=== PATIENT | female | born 1990 | race Caucasian/White ===

== ENCOUNTER → 2017-05-01 08:34 | Outpatient (CLI) | payer OTHER, SELFPAY ==
--- NOTE | 2017-05-01 08:37 | RAD_ITS ---
STUDY: X-RAY - RIGHT SHOULDER REASON FOR EXAM: Chronic shoulder pain, history of brachial plexus injury. TECHNIQUE: 3 view(s) of the shoulder. COMPARISON: Radiographs 08/11/2012. FINDINGS: Normal glenohumeral articulation. Normal acromioclavicular joint. Normal acromion. Normal humeral head and visualized proximal humerus. The soft tissue structures are unremarkable. Normal visualized pulmonary apex. RAD/Shoulder min 2 Views IMPRESSION: Normal x-ray examination of the right shoulder. Electronically Signed: Jim Paul MD at 15:47 EST Tel , Service support ,
--- NOTE | 2017-05-01 09:17 | RAD_ITS ---
STUDY: X-RAY - RIGHT ELBOW REASON FOR EXAM: Female, 26 years old. Elbow pain. History of brachial plexus injury. TECHNIQUE: 3 view(s) of the elbow. COMPARISON: None. FINDINGS: Normal visualized humerus, radius and ulna. Normal radiocapitellar and ulnotrochlear articulations. The soft tissue structures are unremarkable. RAD/Elbow min 3 Views IMPRESSION: No significant abnormality. Electronically Signed: Gerber Carreon MD at 15:12 EST , Service support ,
== END ==
PROVIDERS: Family Provider Pediatrics; PCP Pediatrics; Visit Provider Orthopaedic Surgery
DX: M25.521 Pain in right elbow (principal); M25.511 Pain in right shoulder
CPT/HCPCS: 73030; 73080

== ENCOUNTER → 2018-02-26 21:12 | Outpatient (CLI) | payer OTHER, SELFPAY ==
[2018-02-26 15:05] VITALS: BMI 23.2
[2018-03-03 13:31] LABS: HPV Reflexed? NOT INDICATED
== END ==
PROVIDERS: Family Provider Pediatrics; PCP Pediatrics; Referring Provider Obstetrics & Gynecology; Visit Provider Obstetrics & Gynecology
DX: Z12.4 Encounter for screening for malignant neoplasm of cervix (principal)
CPT/HCPCS: 87624; 88175; G0145

== ENCOUNTER → 2018-04-16 13:56 | Outpatient (CLI) | payer OTHER, SELFPAY ==
[2018-04-16 13:49] VITALS: BMI 23.2
[2018-04-16 14:33] LABS: Absolute Lymphocyte Count 1.78 X10^3/ul (0.83-4.51); Absolute Neutrophil Count 6.2 X10^3/uL (2.0-7.7); Basophil# 0.02 X10^3/uL; Basophil% 0.2 % (0-1); Eosinophil# 0.15 X10^3/uL; Eosinophils% 1.7 % (0-5); Hematocrit 41.4 % (37-47); Hemoglobin 13.9 g/dl (12.0-15.0); Lymphocyte # 1.78 X10^3/ul (4.0); Lymphocyte % 20.3 % (19-41); Mean Corp Hgb Conc 33.6 g/gl (32-36); Mean Corpuscular Hgb 28.7 pg (27.0-32.0); Mean Corpuscular Volume 85.4 fL (81-99); Mean Platelet Vol. 9.2 fl (6.2-12.0); Monocyte% 6.8 % (0-10); Neutrophil # 6.21 X10^3/uL (2.7-7.7); Neutrophil % 70.8 % (47-70); Platelet Count 280 K/mm3 (150-450); RBC Distribution Width CV 12.9 % (11.6-14.6); RBC Distribution Width SD 40.2 fl (35.1-43.9); Red Blood Count 4.85 M/mm3 (4.2-5.4); White Blood Count 8.8 K/mm3 (4.4-11.0)
[2018-04-16 14:38] LABS: POSITIVE COUNT NO; POSITIVE DIFFERENTIAL NO; POSITIVE MORPHOLOGY NO
[2018-04-16 16:08] LABS: HIV - WCH Non-Reactive (Nonreactive); Rubella IgG 298.8 IU/mL
[2018-04-16 21:21] LABS: Chlamydia Trachomatis by PCR Negative (Negative); Neisserai gonorrhoeae by PCR Negative (Negative); Probe Check PASS; Sample Adequacy Control PASS; Specimen Processing Control PASS
[2018-04-16 22:04] LABS: Rapid Plasmin Reagin (RPR) NONREACTIVE (NONREACTIVE)
[2018-04-17 18:43] LABS: HEPATITIS B SURFACE AG Negative (Negative)
== END ==
PROVIDERS: Family Provider Family Medicine; PCP Family Medicine; Referring Provider Obstetrics & Gynecology; Visit Provider Obstetrics & Gynecology
DX: Z34.90 Encounter for supervision of normal pregnancy, unspecified, unspecified trimester (principal)
CPT/HCPCS: 36415; 85025; 86592; 86703; 86762; 86850; 86900; 87086; 87340; 87491; 87591

== ENCOUNTER → 2018-07-09 08:47 | Outpatient (CLI) | payer OTHER, SELFPAY ==
[2018-06-16 08:09] VITALS: BMI 23.2
== END ==
PROVIDERS: Family Provider Family Medicine; PCP Family Medicine
DX: Z34.90 Encounter for supervision of normal pregnancy, unspecified, unspecified trimester (principal)
CPT/HCPCS: 36415

== ENCOUNTER 2018-08-21 17:49 | Observation (INO) | payer OTHER, SELFPAY ==
[2018-08-11 08:49] VITALS: BMI 25.3
[2018-08-21 17:50] VITALS: BP 111/53; PULSE 95; RESP 18; TEMP 37; O2SAT 100; BMI 24.0
[2018-08-21 18:07] VITALS: BP 107/56; PULSE 93; RESP 16; O2SAT 100
--- NOTE | 2018-08-21 18:13 | ED.RN ---
DR HERNANDEZ COMPLETED ULTRASOUND AT BEDSIDE.
[2018-08-21 18:40] VITALS: BP 107/55; PULSE 97; RESP 10; O2SAT 100
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
[2018-08-21 19:11] LABS: Absolute Lymphocyte Count 1.67 X10^3/ul (0.83-4.51); Absolute Neutrophil Count 10.4 X10^3/uL (2.0-7.7); Basophil# 0.02 X10^3/uL; Basophil% 0.1 % (0-1); Eosinophil# 0.16 X10^3/uL; Eosinophils% 1.2 % (0-5); Hematocrit 33.6 % (37-47); Hemoglobin 11.2 g/dl (12.0-15.0); Lymphocyte # 1.67 X10^3/ul (4.0); Lymphocyte % 12.3 % (19-41); Mean Corp Hgb Conc 33.3 g/gl (32-36); Mean Corpuscular Hgb 28.7 pg (27.0-32.0); Mean Corpuscular Volume 86.2 fL (81-99); Mean Platelet Vol. 9.7 fl (6.2-12.0); Monocyte# 1.04 X10^3/uL; Monocyte% 7.6 % (0-10); Neutrophil # 10.38 X10^3/uL (2.7-7.7); Neutrophil % 76.2 % (47-70); Platelet Count 257 K/mm3 (150-450); RBC Distribution Width CV 12.9 % (11.6-14.6); White Blood Count 13.6 K/mm3 (4.4-11.0)
[2018-08-21 19:12] LABS: Differential Indicated SCAN CRITERIA MET; POSITIVE COUNT YES; POSITIVE DIFFERENTIAL NO; POSITIVE MORPHOLOGY YES
[2018-08-21] MEDS: Acetaminophen 325 MG Tablet 650 MG PO (19:18)
[2018-08-21 19:19] LABS: Anion Gap 6 (5-15); BUN 11 mg/dL (7-18); BUN/Creat Ratio 17.2 RATIO (10-20); Calcium,Total 8.5 mg/dL (8.5-10.1); Chloride 106 mmol/L (98-107); Creatinine, Serum 0.64 mg/dL (0.55-1.02); EST Glomerular Filtration Rate 119 mL/min (>60); Est Glom Filt Rate - Afr Amer 145 mL/min (>60); Estimated Creatinine Clearance 115.03 ml/min; Glucose 82 mg/dL (74-106); Potassium 3.6 mmol/L (3.5-5.1); Sodium Level 135 mmol/L (136-145)
[2018-08-21 19:31] LABS: Fibrinogen 474 mg/dl (203-444); Prothrombin Time (Protime)PT. 13.2 SECONDS (11.7-14.9)
[2018-08-21 19:40] LABS: Platelet Estimate ADEQUATE (ADEQ); Red Cell Morphology NORM C+C NORMAL (NORM C&C)
[2018-08-21 19:45] VITALS: BP 118/65; PULSE 105; RESP 16; O2SAT 99
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
--- NOTE | 2018-08-21 20:13 | ED.RN ---
REPORT CALLED TO OB CHARGE NURSE LINDA. REPORT GIVEN. PT OK FOR FLOOR.
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
[2018-08-21 20:52] VITALS: BMI 24.0
[2018-08-21] MEDS: Lactated Ringers 1,000 ML 999 ML IV (21:05)
[2018-08-21] MEDS: Betamethasone/Betamethasone 30 MG/5 ML Vial 12 MG IM (21:06)
[2018-08-22 01:05] LABS: Fibrinogen 573 mg/dl (203-444)
[2018-08-22] MEDS: Acetaminophen 325 MG Tablet 650 MG PO ×3 (01:23→15:36)
[2018-08-22] MEDS: Ferrous Sulfate 325 MG Tablet PO (09:10)
[2018-08-22] MEDS: 0.9% Saline Lock 10 ML Syringe IV (09:10)
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
[2018-08-22] MEDS: Prenatal Vits Tablet 1 TABLET PO (15:40)
[2018-08-22] MEDS: Betamethasone/Betamethasone 30 MG/5 ML Vial 12 MG IM (21:43)
[2018-08-24 14:24] LABS: Pathologist Review Reviewed
== END 2018-08-22 22:05 | disposition home or self-care (01) ==
LOC: ED 19:18 → WP 20:04
PROVIDERS: Admitting Provider Obstetrics & Gynecology; Emergency Provider Emergency Medicine; Family Provider Family Medicine; PCP Family Medicine; Referring Provider Obstetrics & Gynecology; Visit Provider Obstetrics & Gynecology
DX: O26.892 Other specified pregnancy related conditions, second trimester (principal); Z3A.25 25 weeks gestation of pregnancy; R07.89 Other chest pain; S01.81XA Laceration without foreign body of other part of head, initial encounter; V43.52XA Car driver injured in collision with other type car in traffic accident, initial encounter; Y93.89 Activity, other specified; Y92.9 Unspecified place or not applicable; S30.1XXA Contusion of abdominal wall, initial encounter; S20.219A Contusion of unspecified front wall of thorax, initial encounter
CPT/HCPCS: 12011; 96360; 96361 ×3; 59025; 59050; 72170; 76816; 80048; 85025; 85384; 85610; 85730; 96372; 99218; 99284; J7120; A4216; G0378; J0702

== ENCOUNTER → 2018-09-09 07:53 | Outpatient (CLI) | payer OTHER, SELFPAY ==
[2018-08-25 13:20] VITALS: BMI 24.0
[2018-09-09 09:01] LABS: Glucose Challenge Gest 1H 50g 95 mg/dL (70-140)
[2018-09-09 10:46] LABS: Absolute Lymphocyte Count 1.38 X10^3/ul (0.83-4.51); Absolute Neutrophil Count 7.9 X10^3/uL (2.0-7.7); Basophil# 0.02 X10^3/uL; Basophil% 0.2 % (0-1); Eosinophil# 0.17 X10^3/uL; Eosinophils% 1.6 % (0-5); Hematocrit 35.1 % (37-47); Hemoglobin 11.5 g/dl (12.0-15.0); Lymphocyte # 1.38 X10^3/ul (4.0); Lymphocyte % 13.1 % (19-41); Mean Corp Hgb Conc 32.8 g/gl (32-36); Mean Corpuscular Hgb 28.6 pg (27.0-32.0); Mean Corpuscular Volume 87.3 fL (81-99); Mean Platelet Vol. 9.7 fl (6.2-12.0); Monocyte# 0.76 X10^3/uL; Monocyte% 7.2 % (0-10); Neutrophil # 7.87 X10^3/uL (2.7-7.7); Platelet Count 242 K/mm3 (150-450); RBC Distribution Width CV 13.2 % (11.6-14.6); RBC Distribution Width SD 41.1 fl (35.1-43.9); Red Blood Count 4.02 M/mm3 (4.2-5.4); White Blood Count 10.5 K/mm3 (4.4-11.0)
[2018-09-09 10:47] LABS: Differential Indicated SCAN CRITERIA MET; POSITIVE COUNT YES; POSITIVE DIFFERENTIAL NO; POSITIVE MORPHOLOGY YES
[2018-09-09 11:09] LABS: Differential Comment SCANNED
[2018-09-10 11:51] LABS: Pathologist Review Reviewed
== END ==
PROVIDERS: Nurse Practitioner Women's Health; Family Provider Family Medicine; PCP Family Medicine; Referring Provider Obstetrics & Gynecology; Visit Provider Obstetrics & Gynecology
DX: Z34.90 Encounter for supervision of normal pregnancy, unspecified, unspecified trimester (principal)
CPT/HCPCS: 36415; 82950; 85025

== ENCOUNTER → 2018-11-06 14:21 | Outpatient (CLI) | payer OTHER, SELFPAY ==
[2018-11-06 08:04] VITALS: BMI 24.0
== END ==
PROVIDERS: Family Provider Pediatrics; PCP Pediatrics; Referring Provider Obstetrics & Gynecology; Visit Provider Obstetrics & Gynecology
DX: Z34.93 Encounter for supervision of normal pregnancy, unspecified, third trimester (principal); Z3A.36 36 weeks gestation of pregnancy
CPT/HCPCS: 87081

== ENCOUNTER 2018-12-09 19:00 | Inpatient (IN) | payer OTHER, SELFPAY ==
[2018-12-04 09:59] VITALS: BMI 24.0
[2018-12-09 19:15] VITALS: BMI 28.7
[2018-12-09] MEDS: Lactated Ringers 1,000 ML 50 ML IV (19:30)
[2018-12-09 20:06] LABS: Absolute Lymphocyte Count 1.69 X10^3/uL (0.83-4.51); Absolute Neutrophil Count 9.9 X10^3/uL (2.0-7.7); Basophil# 0.05 X10^3/uL; Basophil% 0.4 % (0-1); Eosinophil# 0.12 X10^3/uL; Eosinophils% 0.9 % (0-5); Hematocrit 36.6 % (37-47); Hemoglobin 12.2 g/dL (12.0-15.0); Lymphocyte # 1.69 X10^3/ul (4.0); Lymphocyte % 13.1 % (19-41); Mean Corp Hgb Conc 33.3 g/dL (32-36); Mean Corpuscular Hgb 28.4 pg (27.0-32.0); Mean Corpuscular Volume 85.3 fL (81-99); Mean Platelet Vol. 10.3 fl (6.2-12.0); Monocyte# 0.91 X10^3/uL; Monocyte% 7.1 % (0-10); NRBC Flagged by Analyzer 0 % (0-5); Neutrophil # 9.91 X10^3/uL (2.7-7.7); Platelet Count 263 K/mm3 (150-450); RBC Distribution Width CV 14.2 % (11.6-14.6); RBC Distribution Width SD 44.1 fl (35.1-43.9); Red Blood Count 4.29 M/mm3 (4.2-5.4); White Blood Count 12.9 K/mm3 (4.4-11.0)
[2018-12-09] MEDS: 0.9% Normal Saline 100 ML IV.SOLN. IY (20:09)
[2018-12-09] MEDS: Oxytocin 30 units/NS 500 ml 30 UNITS/500 ML IV.SOLN IV (20:36)
[2018-12-10] MEDS: Nalbuphine 10 MG/ML Ampul IV (01:54)
[2018-12-10] MEDS: Lactated Ringers 1,000 ML 200 ML IV ×3 (01:57→13:13)
[2018-12-10] MEDS: Lactated Ringers 500 ML 999 ML IV ×2 (04:09→10:50)
[2018-12-10] MEDS: fentaNYL-bupivacaine (epidural) 100 ML BAG EPIDURAL ×3 (05:34→14:47)
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
[2018-12-10] MEDS: Acetaminophen 325 MG Tablet PO (09:32)
[2018-12-10] MEDS: Acetaminophen 500 MG Tablet 1000 MG PO (14:21)
[2018-12-10] MEDS: Oxytocin 30 units/NS 500 ml 30 UNITS/500 ML IV.SOLN 334 UNITS IV (17:45)
--- NOTE | 2018-12-10 18:05 | PCM.OPRPT ---
Problem List (1) Post-dates Status: Acute (2) Influenza vaccine refused Status: Acute Comment: declined 12/04/18 will get one at a later date. (3) Status: Acute Qualifiers: Comment: sequential screening- negative. declined carrier screening. ultrasound nl (4) Supervision of normal Status: Acute Qualifiers: Comment: PRR IZZY 12/02/18 girl Mir Vaginal Delivery Maternal Presentation: Medically Indicated Induction iol postdates Method of Induction: Pitocin, Mahajan Bulb Medical Reason for Induction: Post term Amniotic Membrane Rupture Type: Artificial Amniotic Fluid Description: Clear Final IZZY: 12/02/18 Gestational age: 41 Weeks and 2 Days Date of Procedure: 12/10/18 Pre-Operative Diagnosis: iol postdates, recurrent decelerations minimal variability Post-Operative Diagnosis: same Surgery/ Procedure Performed: Vacuum Assisted Vaginal Delivery Type of Anesthesia: Epidural Description of Procedure: Patient began pushing and developed minimal variability with recurrent late decelerations for the decision was made to proceed with an operative vaginal delivery. Patient was consented and vacuum applied in the +3 station and pulse with 1 contraction no pop offs and delivered the head in the VIDYA presentation. The head was delivered atraumatically. The anterior and posterior shoulders delivered without complication followed by the rest of the and the was placed on the maternal abdomen. Delayed cord clamping was employed for approximately 30 seconds. Cord was clamped and cut and gentle traction was applied to the cord and the placenta delivered spontaneously immediately following it was noted to be intact with three-vessel cord. The perineum and vagina were inspected and noted to have a small first-degree perineal laceration was repaired in the usual fashion with 3-0 Vicryl repeat. EBL was 200 cc. Patient and tolerated delivery well. Presentation: VIDYA Placental Delivery Description: Spontaneous Cord Vessel Description: 3 Vessels Cord Entanglement: None Estimated Blood Loss: 200 A gender: Female Episiotomy Description: None Laceration: Perineal Extension/lac, 1st degree Medications given after delivery: IV Pitocin Complications: None
--- NOTE | 2018-12-10 18:08 | PLAC_PTH ---
PATIENT: TONEY JOE LOC: [facility] U#:[id number] AGE/SX: 28/F ROOM: WP007 RE12/09/[address]: Dr. Latasha Mario MD : 1990 BED: 1 DIS: 12/12/2018 SPEC #: [id number] RECD: 12/10/18 18:51 STATUS: CALIXTO REQ #: [id number] FELICIANO: 12/10/18 18:[address]: Latasha Mario DEPT: SURGICAL PATHOLOGY RECD BY: Xavi Anderson ENTERED: 12/11/18 07:12 SP TYPE: PLACENTA OTHR DR: Dr. Venice Hernandez MD Tissues: Placenta, NOS Procedures: Surgery Specimen Level V HEADER OPERATION: Vaginal delivery PRE-OP DIAGNOSIS: Fever TISSUE SUBMITTED: Placenta MICROSCOPIC DIAGNOSIS Ortiz placenta (448 gm): Umbilical cord - trivsacular with acute funisitis. Placental membranes - no pathologic change. Placental disc - acute vasculitis of superficial placental vessels, Leno-Isaias change, intervillous congestion and acute deciduitis. AM:alma 12/14/18 MICROSCOPIC DESCRIPTION Slides are reviewed. GROSS DESCRIPTION SPECIMEN: PLACENTA / CLINICAL INFORMATION: A. Weight: 3.37 kg B. Gestational Age: 41 weeks C. Sex: Female PLACENTAL WEIGHT (POST FIXATION): 448 gm PLACENTAL DIMENSIONS: 16.5 x 16 x 3 cm PLACENTAL SHAPE: Usual ovoid PLACENTAL WEIGHT FOR GESTATIONAL AGE: Within 10-99th percentile MEMBRANES - Present A. Insertion: Marginal B. Site of rupture from edge: At edge of placental disc C. Color of membrane: Petersen-moreno D. Abnormalities: None UMBILICAL CORD - Present A. Color: Petersen-moreno B. Insertion: Near central C. Length: 24 cm D. Diameter: 1.5 cm E. Number of vessels: Three F. Abnormalities: None PLACENTAL DISC - Present A. Color of surface: Petersen-moreno B. surface abnormalities: None C. Maternal cotyledons: Intact with minimal tears D. Attached retro placental clot: No clot E. Cut surface: Dark red and spongy F. Lesions: None G. Separate clot: Absent SECTIONS SUBMITTED: 1. Umbilical cord ( end notched) 2. Membrane roll 3. Placental disc, and maternal surfaces 4. Placental disc, and maternal surfaces 5. Placental disc, and maternal surfaces AM:alma 12/11/18 TC:2 CPT: 66168
[2018-12-10 18:49] LABS: Pathology Specimen OB SEE PATHOLOGY REPORT
[2018-12-10] MEDS: Ketorolac 10 MG Tablet PO (19:51)
[2018-12-10 22:00] VITALS: TEMP 36.7
[2018-12-10 23:15] VITALS: BP 125/77; PULSE 96; RESP 18; TEMP 36.5; O2SAT 96
[2018-12-11] MEDS: Ketorolac 10 MG Tablet PO ×4 (02:03→21:04)
[2018-12-11 04:25] VITALS: BP 116/69; PULSE 97; RESP 18; TEMP 36.3; O2SAT 97
[2018-12-11] MEDS: Acetaminophen 500 MG Tablet 1000 MG PO ×2 (04:36→12:23)
[2018-12-11 08:00] VITALS: BP 111/61; PULSE 76; RESP 16; TEMP 36.9
[2018-12-11] MEDS: Prenatal Vits Tablet 1 TABLET PO (08:04)
[2018-12-11] MEDS: Senna/Docusate Sodium 1 Tablet PO (08:04)
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
[2018-12-11 12:12] VITALS: BP 130/85; PULSE 91; RESP 16; TEMP 36.9; O2SAT 97
[2018-12-11 16:40] VITALS: BP 124/77; PULSE 90; RESP 14; TEMP 36.7
[2018-12-11 21:05] VITALS: BP 125/82; PULSE 83; RESP 16; TEMP 36.7; O2SAT 97
[2018-12-12 02:15] VITALS: BP 106/70; PULSE 61; RESP 14; TEMP 37.2; O2SAT 98
[2018-12-12] MEDS: Acetaminophen 500 MG Tablet 1000 MG PO (02:17)
[2018-12-12] MEDS: Ketorolac 10 MG Tablet PO (03:04)
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
--- NOTE | 2018-12-12 08:50 | DCINST_ITS ---
Discharge Diet: No Restrictions Discharge Activity: Return to Normal Activity, May not drive while taking narcotic pain medications., May Shower May resume sexual activity in: 4-6 weeks Call your doctor if your incision/area has: Continuous Slow Oozing, Sudden Increased Bleeding, Increased Pain/ Swelling, Increased Redness, Foul Smelling Discharge Additional Instructions: If you experience any of the following, contact your healthcare provider. * Bleeding that soaks a pad every hour for 2 hours * Fever 100.4 or higher * Unrelieved incision or abdominal pain * Swelling, redness, discharge or bleeding from your incision or episiotomy site * Your incision begins to separate * Problems urinating (including inability to urinate or burning while urinating). * Visual changes * Severe headache * Flu-like symptoms * Pain or redness in one of both of your breasts * Pain, warmth, tenderness or swelling in your legs, especially the calf area * Frequent nausea and vomiting * Symptoms of depression or anxiety If you experience any of the following, call 911 or go to the nearest Emergency Room. * Chest pain * Problems breathing * Seizure activity * Partial or complete paralysis of a body part, slurred speech, weakness or drooping of the face, or a sudden inability to walk or hold your balance Allergies/Adverse Reactions: Allergies No Known Allergies Allergy (Verified 12/04/18 09:58) Medications to take at Discharge Pnv No.95/Ferrous Fum/Folic AC [ Vitamin Tablet] 1 ea PO DAILY 08/21/18 Naproxen [Naprosyn] 250 - 500 mg PO Q8H PRN PRN #30 tab 12/12/18 The following prescriptions were given: Naproxen [Naprosyn] 250 - 500 mg PO Q8H PRN PRN #30 tab PRN Reason: MILD PAIN Transmission Status: Pending to [facility] Please Follow Up With: Latasha Mario MD - [phone] When: Call to make an appointment with your doctor in 6 weeks. If you had elevated Blood pressure or 4th degree laceration you will need to be seen in 2 weeks. Test Results: Test results from this visit will be discussed in further detail at your follow- up appointment, if applicable.
--- NOTE | 2018-12-12 08:50 | PCM.DCVAG ---
Discharge Diet: No Restrictions Discharge Activity: Return to Normal Activity, May not drive while taking narcotic pain medications., May Shower May resume sexual activity in: 4-6 weeks Call your doctor if your incision/area has: Continuous Slow Oozing, Sudden Increased Bleeding, Increased Pain/ Swelling, Increased Redness, Foul Smelling Discharge Additional Instructions: If you experience any of the following, contact your healthcare provider. Bleeding that soaks a pad every hour for 2 hours Fever 100.4 or higher Unrelieved incision or abdominal pain Swelling, redness, discharge or bleeding from your incision or episiotomy site Your incision begins to separate Problems urinating (including inability to urinate or burning while urinating). Visual changes Severe headache Flu-like symptoms Pain or redness in one of both of your breasts Pain, warmth, tenderness or swelling in your legs, especially the calf area Frequent nausea and vomiting Symptoms of depression or anxiety If you experience any of the following, call 911 or go to the nearest Emergency Room. Chest pain Problems breathing Seizure activity Partial or complete paralysis of a body part, slurred speech, weakness or drooping of the face, or a sudden inability to walk or hold your balance Allergies/Adverse Reactions: Allergies No Known Allergies Allergy (Verified 12/04/18 09:58) Medications to take at Discharge Pnv No.95/Ferrous Fum/Folic AC [ Vitamin Tablet] 1 ea PO DAILY 08/21/18 Naproxen [Naprosyn] 250 - 500 mg PO Q8H PRN PRN #30 tab 12/12/18 The following prescriptions were given: Naproxen [Naprosyn] 250 - 500 mg PO Q8H PRN PRN #30 tab PRN Reason: MILD PAIN Transmission Status: Pending to [facility] Please Follow Up With: Latasha Mario MD - [phone] When: Call to make an appointment with your doctor in 6 weeks. If you had elevated Blood pressure or 4th degree laceration you will need to be seen in 2 weeks. Test Results: Test results from this visit will be discussed in further detail at your follow-up appointment, if applicable.
[2018-12-12 10:05] VITALS: BP 116/77; PULSE 77; RESP 16; TEMP 36.6
[2018-12-12] MEDS: Senna/Docusate Sodium 1 Tablet PO (10:10)
== END 2018-12-12 10:40 | disposition home or self-care (01) | DRG 807 ==
PROVIDERS: Admitting Provider Obstetrics & Gynecology; Referring Provider Obstetrics & Gynecology; Visit Provider Obstetrics & Gynecology
DX: O48.0 Post-term pregnancy (principal); O76 Abnormality in fetal heart rate and rhythm complicating labor and delivery; O70.0 First degree perineal laceration during delivery; Z37.0 Single live birth; Z3A.41 41 weeks gestation of pregnancy
CPT/HCPCS: 59025; 59050; 85025; 86850; 86900; 86901; 88307; 99218; J7120; G0378; J0290

== ENCOUNTER → 2020-01-17 16:32 | Outpatient (CLI) | payer OTHER, SELFPAY ==
[2019-03-08 13:52] VITALS: BMI 28.7
== END ==
PROVIDERS: Visit Provider Family Medicine
DX: Z20.828 Contact with and (suspected) exposure to other viral communicable diseases (principal)
CPT/HCPCS: 87635; U0003

== ENCOUNTER 2021-04-16 10:09 | Outpatient (CLI) | payer BC, SELFPAY ==
[2021-04-18 12:06] LABS: HPV Reflexed? NOT INDICATED
== END 2021-04-16 23:59 | disposition home or self-care (01) ==
LOC: LABSPEC 04-17 10:09
PROVIDERS: PCP Family Medicine; Visit Provider Nurse Practitioner Women's Health
DX: Z12.4 Encounter for screening for malignant neoplasm of cervix (principal)
CPT/HCPCS: 88175; G0145

== ENCOUNTER → 2021-10-30 | Outpatient (CLI) | payer BC, SELFPAY ==
[2021-10-30 11:22] LABS: Absolute Lymphocyte Count 2.34 X10^3/uL (0.83-4.51); Absolute Neutrophil Count 6.5 X10^3/uL (2.0-7.7); Basophil# 0.03 X10^3/uL; Basophil% 0.3 % (0-1); Eosinophil# 0.21 X10^3/uL; Eosinophils% 2.2 % (0-5); Hematocrit 38.4 % (37-47); Hemoglobin 13.2 g/dL (12.0-15.0); Lymphocyte # 2.34 X10^3/ul (0.83-4.51); Lymphocyte % 24.2 % (19-41); Mean Corp Hgb Conc 34.4 g/dL (32-36); Mean Corpuscular Hgb 28.9 pg (27.0-32.0); Mean Platelet Vol. 8.9 fl (6.2-12.0); Monocyte# 0.55 X10^3/uL; Monocyte% 5.7 % (0-10); NRBC Flagged by Analyzer 0 % (0-5); Neutrophil # 6.47 X10^3/uL (2.7-7.7); Neutrophil % 67.1 % (47-70); Platelet Count 295 K/mm3 (150-450); RBC Distribution Width CV 13.1 % (11.6-14.6); RBC Distribution Width SD 40.1 fl (35.1-43.9); Red Blood Count 4.57 M/mm3 (4.2-5.4); White Blood Count 9.7 K/mm3 (4.4-11.0)
[2021-10-30 12:01] LABS: Amphetamine Urine VISTA NEGATIVE (<1000 ng/mL); Barbiturate Urine VISTA NEGATIVE (< 200 ng/mL); Benzodiazepine Urine VISTA NEGATIVE (< 200 ng/mL); Cocaine Urine VISTA NEGATIVE (< 300 ng/mL); Ecstacy Urine VISTA NEGATIVE (< 500 ng/mL); Methadone Urine VISTA NEGATIVE (< 300 ng/mL); PCP Urine VISTA NEGATIVE (< 25 ng/mL); THC Urine VISTA NEGATIVE (< 50 ng/mL); Vista UDS pH Range 6
[2021-10-30 13:02] LABS: HIV - WCH Non-Reactive (Nonreactive); Hepatitis B Surface Antigen Non-Reactive (Nonreactive); Hepatitis C Antibody Non-Reactive (Nonreactive); Rubella IgG Reactive (Nonreactive); Syphilis Antibodies Non-reactive
[2021-10-30 13:35] LABS: NATERA MAILED SPECIMEN
[2021-10-31 22:07] LABS: Chlamydia By Nucleic Acid AMP Negative (Negative)
[2021-11-01 08:55] LABS: Gonococcus By Nucleic Acid AMP Negative (Negative)
== END | disposition home or self-care (01) ==
LOC: PAVLAB 11:04
PROVIDERS: PCP Family Medicine; Referring Provider Obstetrics & Gynecology; Visit Provider Obstetrics & Gynecology
DX: Z34.81 Encounter for supervision of other normal pregnancy, first trimester (principal)
CPT/HCPCS: 36415; 80307; 85025; 86703; 86762; 86780; 86803; 86850; 86900; 86901; 87086; 87088; 87340; 87491; 87591

== ENCOUNTER → 2022-02-18 | Outpatient (CLI) | payer BC, SELFPAY ==
[2022-02-18 08:22] LABS: Absolute Lymphocyte Count 1.88 X10^3/uL (0.83-4.51); Absolute Neutrophil Count 6.3 X10^3/uL (2.0-7.7); Basophil# 0.04 X10^3/uL; Basophil% 0.4 % (0-1); Eosinophil# 0.32 X10^3/uL; Eosinophils% 3.5 % (0-5); Hemoglobin 11.2 g/dL (12.0-15.0); Lymphocyte # 1.88 X10^3/ul (0.83-4.51); Lymphocyte % 20.4 % (19-41); Mean Corpuscular Hgb 28.4 pg (27.0-32.0); Mean Corpuscular Volume 88.6 fL (81-99); Mean Platelet Vol. 8.9 fl (6.2-12.0); Monocyte# 0.43 X10^3/uL; Monocyte% 4.7 % (0-10); NRBC Flagged by Analyzer 0 % (0-5); Neutrophil # 6.25 X10^3/uL (2.7-7.7); Neutrophil % 67.9 % (47-70); Platelet Count 268 K/mm3 (150-450); RBC Distribution Width CV 13.1 % (11.6-14.6); RBC Distribution Width SD 42.5 fl (35.1-43.9); Red Blood Count 3.95 M/mm3 (4.2-5.4); White Blood Count 9.2 K/mm3 (4.4-11.0)
[2022-02-18 08:34] LABS: Glucose Challenge Gest 1H 50g 122 mg/dL (70-140)
[2022-02-18 09:22] LABS: HIV - WCH Non-Reactive (Nonreactive); Syphilis Antibodies Non-reactive
== END | disposition home or self-care (01) ==
LOC: PAVLAB 07:52
PROVIDERS: PCP Family Medicine; Referring Provider Obstetrics & Gynecology; Visit Provider Obstetrics & Gynecology
DX: Z34.90 Encounter for supervision of normal pregnancy, unspecified, unspecified trimester (principal)
CPT/HCPCS: 36415; 82950; 85025; 86703; 86780

== ENCOUNTER → 2022-04-23 | Outpatient (CLI) | payer BC, SELFPAY ==
--- NOTE | 2022-04-23 14:16 | US_ITS ---
STUDY: SECOND AND THIRD TRIMESTER OBSTETRICAL ULTRASOUND - LIMITED REASON FOR EXAM: Female, 31 years old. growth. LMP: August 19, 2021 PRIOR ULTRASOUND: None. TECHNIQUE: Transabdominal TECHNICAL QUALITY: Adequate. FINDINGS: There is a single intrauterine fetus. The fetus is in a cephalic presentation. There is demonstrated cardiac activity with a heart rate of 153 bpm. Borderline polyhydramnios. The largest amniotic fluid pocket measures 9.15 cm. The amniotic fluid index (DANIELLE) is 23.27 cm. The placenta is fundal and posterior and not low lying. There are Grade 2 placental changes. The cervix measures 3.6 cm cm in length. BIOMETRY: BPD: 8.73 cm: 35 weeks, 2 days HC: 31.75 cm: 35 weeks, 5 days AC: 31.36 cm: 35 weeks, 2 days FL: 6.15 cm: 31 weeks, 6 days Age by LMP: 35 weeks, 2 days. IZZY by LMP: May 26, 2022. age by current US: 34 weeks, 6 days. IZZY by current US: May 29, 2022. Estimated weight: 2434 grams, +/- 365 grams, 26 percentile. Gender: Indeterminant US/OB Limited With Biometrics IMPRESSION: 1. Single live intrauterine at 34 weeks, 6 days. IZZY is May 29, 2022. This correlates with expected gestational age by LMP. 2. EFW of 2434 g. 3. Borderline polyhydramnios. The DANIELLE is 23.27 cm. 4. Frontal and posterior grade 2 placenta. 5. Vertex presentation. Electronically Signed: Simon Wellington DO at 18:26 EST ,
== END | disposition home or self-care (01) ==
LOC: US 14:15
PROVIDERS: PCP Family Medicine; Referring Provider Obstetrics & Gynecology; Visit Provider Obstetrics & Gynecology
DX: U07.1 COVID-19 (principal)
CPT/HCPCS: 76816

== ENCOUNTER → 2022-05-01 | Outpatient (CLI) | payer BC, SELFPAY | END | disposition home or self-care (01) | LOC: LABSPEC 11:00 | PROVIDERS: PCP Family Medicine; Visit Provider Obstetrics & Gynecology | DX: Z34.90 Encounter for supervision of normal pregnancy, unspecified, unspecified trimester (principal) | CPT/HCPCS: 87081 ==

== ENCOUNTER 2022-05-20 02:12 | Inpatient (IN) | payer BC, SELFPAY ==
[2022-05-20] VITALS (46 sets, daily range): BP systolic 99–141; BP diastolic 54–77; PULSE 76–118; RESP 16; TEMP 36.4–37.5; O2SAT 83–100; BMI 30.1
[2022-05-20] MEDS: LACTATED RINGERS 500 ML 999 ML IV (02:00)
[2022-05-20] MEDS: Lactated Ringers 1,000 ML 200 ML IV ×2 (02:00→05:44)
[2022-05-20 02:16] LABS: Absolute Neutrophil Count 10.5 X10^3/uL (2.0-7.7); Basophil# 0.06 X10^3/uL; Basophil% 0.4 % (0-1); Eosinophil# 0.16 X10^3/uL; Eosinophils% 1.2 % (0-5); Hematocrit 37.6 % (37-47); Hemoglobin 12.5 g/dL (12.0-15.0); Lymphocyte % 14.4 % (19-41); Mean Corp Hgb Conc 33.2 g/dL (32-36); Mean Corpuscular Hgb 28.2 pg (27.0-32.0); Mean Corpuscular Volume 84.9 fL (81-99); Monocyte# 0.94 X10^3/uL; Monocyte% 6.8 % (0-10); NRBC Flagged by Analyzer 0 % (0-5); Neutrophil % 75.5 % (47-70); Platelet Count 248 K/mm3 (150-450); RBC Distribution Width CV 13.8 % (11.6-14.6); Red Blood Count 4.43 M/mm3 (4.2-5.4); White Blood Count 13.9 K/mm3 (4.4-11.0)
[2022-05-20 03:05] LABS: Syphilis Antibodies Non-reactive
[2022-05-20] MEDS: fentaNYL-bupivacaine (epidural) 100 ML BAG EPIDURAL (03:29)
--- NOTE | 2022-05-20 04:13 | HP.PCM.OB_ITS ---
HPI - General General Date of Admission: 05/20/22 HPI Narrative TONEY JOE, is a 31 F who presents IAL regular ctx no vb lof admits good fm Maternal Data Information IZZY Calculator Estimated Delivery Date Method Current WG Current Estimate 05/26/22 Ultrasound #1 39w 1d Other Estimates 06/02/22 LMP (Certain) 38w 1d [facility] Medical History Lab test positive for detection of COVID-19 virus Placenta previa Home Medications multivitamin no.47-iron fum 27 mg-folate no.1 1 mg-dha 300 mg capsule (PNV-DHA) 1 cap PO DAILY 10/24/21 [History Last Taken 05/18/22 10:00] aspirin 81 mg tablet,delayed release 81 mg PO DAILY 12/06/21 [History Last Taken Unknown] Allergy/AdvReac Type Severity Reaction Status Date / Time No Known Allergies Allergy Verified 05/20/22 01:56 Family History Grandfather CVA (cerebral vascular accident) Mother Breast cancer Father Colon cancer Sister Diabetes Surgical History 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 S/P shoulder surgery Social History adopted: No household members: spouse and children housing: house number of children: 1 current occupational status: employed current occupation: [employer] current occupational exposures/hazards: No pets and animals: Yes pets and animals: dog(s) history of recent travel: No sexually active: Yes Smoking Status: Never smoker alcohol intake: former details: social occasional prior to substance use type: does not use well-balanced diet: daily or most days caffeine: No eating out: 1-3 times/week during the past year weight has: remained stable what type of physical activity do you participate in: none and other details: cross fit ronny/spiritism: [employer] seatbelt use: always do you feel safe at home: Yes additional social history: Jassi Blankenship History 2 Elective abortions Hx Para 1 Spontaneous abortions Hx # Term Pregnancies 1 Ectopic pregnancies Hx # Pregnancies Multiple births # of living children 1 Past Pregnancies Del. Date Name GA/Weeks Outcome Route Bth Weight Gen Labor [facility] 12/10/18 Jerrica 41 live - full term vacuum Female [facility] Dr. Mario Delivery Date: 12/10/18 Last Updated by: Trudy Patel IOLD postdates, vavd decels, maternal fever Visit Details Expected Delivery Route/Plan Labor Preferences- CB/BF classes: no labor support person: Mir labor intervention preferences: [] pain management options preferred: epidural cut cord/dad catch: cord : yes PP control planned: discussed;IUD discussed possible routes of delivery and associated risks: [] special requests: [] Plans Covid status: + Dec 2021 Flu vaccine: given Tdap vaccine: Rhogam: NA LARC form signed: yes Problem list reviewed and updated with the most current plan of care details and appropriate orders placed. Relevant counseling for the gestational age provided. Continue routine care and follow up unless otherwise noted in visit notes/problem list details OB Flowsheet Initial Weight: Not Recorded Date -?-?-?-?-?-?-?-?-?-?-?-?- EGA Weight BP Urine Prot -?-?-?-?-?-?-?-?-?-?-?-?- Glucose FHR FuHt Pres Dilation -?-?-?-?-?-?-?-?-?-?-?-?- Effaced St Visit Note 10/30/21 -?-?-?-?-?-?-?-?-?-?-?-?- 10w 2d 125 lb 6 oz 118/80 -?-?-?-?-?-?-?-?-?-?-?-?- 168 -?-?-?-?-?-?-?-?-?-?-?-?- JV- CRL off by a week. [place] 05/26/21 12/06/21 -?-?-?-?-?-?-?-?-?-?-?-?- 15w 4d 126 lb 8 oz 100/64 Nega tive -?-?-?-?-?-?-?-?-?-?-?-?- Negative 145 -?-?-?-?-?-?-?-?-?-?-?-?- JV- Pt had covid last week. started baby asa. 12/27/21 -?-?-?-?-?-?-?-?-?-?-?-?- 18w 4d 131 lb 118/68 Negative -?-?-?-?-?-?-?-?-?-?-?-?- Negative 151 -?-?-?-?-?-?-?-?-?-?-?-?- -NO VB, veronica syed. Feeling flutters. flu vaccine given. 01/23/22 -?-?-?-?-?-?-?-?--?-?-?-?- 22w 3d 138 lb 6 oz 114/73 Nega tive -?-?-?-?-?-?-?-?-?-?-?-?- Negative 143 22 -?-?-?-?-?-?-?-?-?-?-?-?- JV- no lof, vagi nal bleeding, or cramping. plan for rpt scan 02/18/22 -?-?-?-?-?-?-?-?-?-?-?-?- 26w 1d 142 lb 2 oz 118/68 Nega tive -?-?-?-?-?-?-?-?-?-?-?-?- Negative 146 26 -?-?-?-?-?-?-?-?-?-?-?-?- -No VB, LOF. G ood FM. 28 wk labs,larc. -No VB, LOF. Good FM. 28 wk labs,larc. 03/11/22 03/05/22 -?-?-?-?-?-?-?-?-?-?-?-?- 28w 2d 147 lb 116/68 Negative -?-?-?-?-?-?-?-?-?-?-?-?- Negative 145 29 -?-?-?-?-?-?-?-?-?-?-?-?- - no vb lof go od fm no regular ctx repeat US scheduled 03/18/22 -?-?-?-?-?-?-?-?-?-?-?-?- 30w 1d 153 lb 96/60 Negative -?-?-?-?-?-?-?-?-?-?-?-?- Negative 140 30 -?-?-?-?-?-?-?-?-?-?-?-?- SM- no vb lof go od fm no regualr ctx 04/03/22 -?-?-?-?-?-?-?-?-?-?-?-?- 32w 3d 157 lb 4 oz 122/68 Nega tive -?-?-?-?-?-?-?-?-?-?-?-?- Negative 145 32 -?-?-?-?-?-?-?-?-?-?-?-?- JV- no lof, vagi nal bleeding, or dec fm. going to [place] next week. had normal growth at 29 weeks. plan for rpt at 36 weeks. 04/19/22 -?-?-?-?-?-?-?-?-?-?-?-?- 34w 5d 160 lb 2 oz 128/71 Nega tive -?-?-?-?-?-?-?-?-?-?-?-?- Negative 140 34 -?-?-?-?-?-?-?-?-?-?-?-?- JV- no lof vagin al bleeding, or dec fm. has growth scan scheduled for 04/2305/01/22 -?-?-?-?-?-?-?-?-?-?-?-?- 36w 3d 162 lb 122/70 Negative -?-?-?-?-?--?-?-?-?-?-?-?- Negative 140 36 Cephalic 1 -?-?-?-?-?-?-?-?-?-?-?-?- 50 -3 JV- no lof , vaginal bleeding, or dec fm. has polyhydramnios, will rpt danielle next week 05/07/22 -?-?-?-?-?-?-?-?-?-?-?-?- 37w 2d 163 lb 2 oz 120/68 Nega tive -?-?-?-?-?-?-?-?-?-?-?-?- Negative 145 37 Cephalic 1 -?-?-?-?-?-?-?-?-?-?--?-?- 50 -3 JV- DANIELLE to day is 21. no complaints today. 05/15/22 -?-?-?-?-?-?-?-?-?-?-?-?- 38w 3d 167 lb 115/70 Negative -?-?-?-?-?-?-?-?-?-?-?-?- Negative 140 38 Cephalic 1 .5 -?-?-?-?-?-?-?-?-?-?-?-?- 60 -3 JV- no lof , vaginal bleeding, or dec fm. NST FHR Rate Baby A Baseline: 140 Variability:: Moderate Accelerations:: 15 x 15 Decelerations:: None NST Reactive:: Yes FHR Category:: Category I Uterine Activity:: q3-5 ROS Constitutional Constitutional: Reports systems reviewed and no addt'l complaints, except as documented ENT HEENT: Reports systems reviewed and no addt'l complaints, except as documented Cardiovascular Cardiovascular: Reports systems reviewed and no addt'l complaints, except as documented Respiratory/Chest Respiratory/Chest: Reports systems reviewed and no addt'l complaints, except as documented Gastrointestinal Gastrointestinal: Reports systems reviewed and no addt'l complaints, except as documented and nausea; Denies abdominal pain Genitourinary Genitourinary: Reports systems reviewed and no addt'l complaints, except as documented, contractions Details: present and frequency (regular ) and movement Details: present Musculoskeletal Musculoskeletal: Reports systems reviewed and no addt'l complaints, except as documented Integumentary Integumentary: Reports as per HPI Neurologic Neurologic: Reports systems reviewed and no addt'l complaints, except as documented Endocrine Endocrinology: Reports systems reviewed and no addt'l complaints, except as documented Vital Signs Vital Signs Vital Signs: 05/20/22 01:23 05/20/22 01:23 05/20/22 01:23 Temperature Temperature Source Pulse Rate 87 93 Blood Pressure 132/77 H BP Systolic 132 BP Diastolic 77 Pulse Ox 05/20/22 01:23 05/20/22 01:35 05/20/22 01:35 Temperature Temperature Source Pulse Rate 88 Blood Pressure 119/72 BP Systolic 119 BP Diastolic 72 Pulse Ox 97 05/20/22 02:00 05/20/22 02:00 05/20/22 02:54 Temperature 98.1 F Temperature Source Temporal Temporal Pulse Rate Blood Pressure BP Systolic BP Diastolic Pulse Ox 05/20/22 02:55 05/20/22 02:55 05/20/22 02:55 Temperature Temperature Source Pulse Rate 86 Blood Pressure 122/67 H BP Systolic 122 BP Diastolic 67 Pulse Ox 97 05/20/22 02:54 05/20/22 03:15 05/20/22 03:15 Temperature 97.5 F L Temperature Source Pulse Rate 108 H Blood Pressure BP Systolic BP Diastolic Pulse Ox 98 05/20/22 03:19 05/20/22 03:19 05/20/22 03:20 Temperature Temperature Source Pulse Rate 90 118 H Blood Pressure 141/64 H BP Systolic 141 BP Diastolic 64 Pulse Ox 05/20/22 03:20 05/20/22 03:24 05/20/22 03:24 Temperature Temperature Source Pulse Rate 99 Blood Pressure 128/60 H BP Systolic 128 BP Diastolic 60 Pulse Ox 100 05/20/22 03:25 05/20/22 03:25 05/20/22 03:29 Temperature Temperature Source Pulse Rate 76 Blood Pressure 99/54 L BP Systolic 99 BP Diastolic 54 Pulse Ox 99 05/20/22 03:29 05/20/22 03:28 05/20/22 03:30 Temperature Temperature Source Pulse Rate 80 90 Blood Pressure BP Systolic BP Diastolic Pulse Ox 83 05/20/22 03:30 05/20/22 03:33 05/20/22 03:33 Temperature Temperature Source Pulse Rate 83 Blood Pressure 102/57 L BP Systolic 102 BP Diastolic 57 Pulse Ox 98 05/20/22 03:35 05/20/22 03:35 05/20/22 03:35 Temperature Temperature Source Pulse Rate 82 84 Blood Pressure 100/57 L BP Systolic 100 BP Diastolic 57 Pulse Ox 05/20/22 03:35 05/20/22 03:40 05/20/22 03:40 Temperature Temperature Source Pulse Rate 80 Blood Pressure 113/59 L BP Systolic 113 BP Diastolic 59 Pulse Ox 98 05/20/22 03:40 05/20/22 03:40 05/20/22 03:43 Temperature Temperature Source Pulse Rate 89 Blood Pressure 108/56 L BP Systolic 108 BP Diastolic 56 Pulse Ox 98 05/20/22 03:43 05/20/22 03:45 05/20/22 03:45 Temperature Temperature Source Pulse Rate 91 93 Blood Pressure BP Systolic BP Diastolic Pulse Ox 97 05/20/22 03:48 05/20/22 03:48 05/20/22 03:50 Temperature Temperature Source Pulse Rate 94 86 Blood Pressure 104/58 L BP Systolic 104 BP Diastolic 58 Pulse Ox 05/20/22 03:50 05/20/22 03:53 05/20/22 03:53 Temperature Temperature Source Pulse Rate 90 Blood Pressure 110/59 L BP Systolic 110 BP Diastolic 59 Pulse Ox 97 05/20/22 03:55 05/20/22 03:55 05/20/22 03:59 Temperature Temperature Source Pulse Rate 82 Blood Pressure 125/70 H BP Systolic 125 BP Diastolic 70 Pulse Ox 98 05/20/22 03:59 05/20/22 04:00 05/20/22 04:00 Temperature Temperature Source Pulse Rate 87 94 Blood Pressure BP Systolic BP Diastolic Pulse Ox 98 Weight Weight: 170 lb Body Mass Index (BMI) 30.1 Physical Exam Const alert, oriented x3 and healthy appearing Constitutional Narrative: uncomfortable with contractions HEENT normocephalic and moist oral mucous membranes Head and Scalp: atraumatic Neck full ROM, no lymphadenopathy, supple and thyroid normal General: trachea midline Thyroid: thyroid normal Lymph Lymphatic: no lymphadenopathy noted Chest inspection of chest normal Resp normal respiratory effort Cardio regular rate GI normal to inspection, nondistended, normoactive bowel sounds, soft to palpation and non-tender Inspection: gravid external exam normal Bimanual Exam - Vag & Uterus: uterus non-tender Manual OB Exam: estimated gestational size appropriate, presentation cephalic, dilated, effaced and station Extremity normal to inspection General Extremity: Negative for edema Skin no rashes or lesions noted Neuro deep tendon reflexes 2+ bilaterally Motor Exam: strength 5/5 throughout and clonus absent Psych mental status grossly normal Labs Labs Labs: Blood Type O POSITIVE Antibody Screen NEGATIVE Hct 37.6 % (37-47) Hgb 12.5 g/dL (12.0-15.0) Obstetrics US Syphilis Total Ab Non-reactive Rubella IgG Antibody Reactive (Nonreactive) Hep Bs Antigen Non-Reactive (Nonreactive) Chlamydia DNA (VINCE) Negative (Negative) Neisseria gonorrhoeae DNA (VINCE) Negative (Negative) HIV 1&2 Antibody Non-Reactive (Nonreactive) Glucose 1 Hr 50 gm 122 mg/dL (70-140) Rhogam given: No Miscellaneous Test Assessment & Plan (1) Family history of breast cancer in mother: COMMENT: age 52. Remission. Patient considering empower-unsure if mom was done (2) : QUALIFIERS: Weeks of gestation: 38 weeks Qualified Code(s): Z3A.38 - 38 weeks gestation of COMMENT: Neg GBS. NIPT low risk, discussed Carrier testing, 02/20 nl GCT. (3) Supervision of normal : COMMENT: [id number], IZZY 06/02/22 boy EUGENIA Becerril, Spouse Mir (4) Seasonal allergies: COMMENT: Spring & fall (5) Lab test positive for detection of COVID-19 virus: COMMENT: 81mg asa 32&36 wk growth US (6) Active labor at term: PLAN: Plan Patient presents IAL, plan expectant management for , pitocin/AROM PRN if needed. Pain management: plans epidural. GBS neg. Management of any complications: none I have reviewed the [facility] and made any clinically relevant updates.
--- NOTE | 2022-05-20 07:39 | EX.PCM.OBRPT ---
Assessment & Plan (1) Family history of breast cancer in mother: COMMENT: age 52. Remission. Patient considering empower-unsure if mom was done (2) : QUALIFIERS: Weeks of gestation: 38 weeks Qualified Code(s): Z3A.38 - 38 weeks gestation of COMMENT: Neg GBS. NIPT low risk, discussed Carrier testing, 02/20 nl GCT. (3) Supervision of normal : COMMENT: [id number], IZZY 06/02/22 boy EUGENIA Becerril, Spouse Mir (4) Seasonal allergies: COMMENT: Spring & fall (5) Lab test positive for detection of COVID-19 virus: COMMENT: 81mg asa 32&36 wk growth US (6) Active labor at term: (7) Vaginal delivery: COMMENT: sm IAL 39 boy Maternal Data Information IZZY Calculator Estimated Delivery Date Method Current WG Current Estimate 05/26/22 Ultrasound #1 39w 1d Other Estimates 06/02/22 LMP (Certain) 38w 1d Vaginal Delivery Operative Information Pre-Operative Diagnosis: see a/p diagnoses Post-Operative Diagnosis: same Surgery / Procedure Performed: Spontaneous Vaginal Delivery Type of Anesthesia: Epidural Special Medications: none Estimated Blood Loss: 200 Fluids Replaced: crystalloid Findings Description of Procedure: Patient began pushing and delivered the head in the garrick presentation. The head was delivered atraumatically and a loose nuchal cord ?1 was identified and the infant delivered through without complication. The anterior and posterior shoulders delivered without complication followed by the rest of the infant and the infant was placed on the maternal abdomen. Delayed cord clamping was employed for approximately 60 seconds. Cord was clamped and cut and gentle traction was applied to the cord and the placenta delivered spontaneously immediately following it was noted to be intact with three-vessel cord. The perineum and vagina were inspected and noted to have no laceration. EBL was 200 cc. Patient and infant tolerated delivery well. Amniotic Fluid Description: Clear Placental Delivery Description: Spontaneous Placenta Disposition: [facility] Cord Vessel Description: 3 Vessels Cord Entanglement: None Delayed Cord Clamping: Yes Post Vaginal Delivery Medications Given After Delivery: IV Pitocin Episiotomy Description: None Complication Complications: None Procedures Urinary/Genital [id number]: [id number] Vaginal Delivery [facility]
--- NOTE | 2022-05-20 07:43 | DCINST_ITS ---
Discharge Instructions Diet Discharge Diet: No restrictions Activity Discharge Activity: Return to Normal Activity, May Drive, May Shower and May Take a Tub Bath (in 4 weeks) May resume sexual activity in: 6-8 weeks (after seen by OB provider) Weight Bearing Status: Full weight bearing Lifting Restrictions: none Dressing / Incision Call your doctor if you observe: Fever of 101 or Higher, Inability to urinate, Using more than 1 pad per hour (for more than 2 hours in a row or more), Shortness of breath, Dizziness, Chest pain and - (headache not controlled with tylenol, change in vision) Follow Up Care When: in 6 weeks for visit, call the office to make the appointment. If you had elevated blood pressures call the office to be seen within 1 week. Test Results: Test results from this visit will be discussed in further detail at your follow- up appointment, if applicable. Discharge Plan Admission Admit Date/Time: 05/20/22 02:12 Attending Provider: Latasha Mario Primary Care Provider: Karla Ozuna Discharge Orders/Prescriptions Prescriptions: No Action PNV-DHA 27 mg iron-1 mg -300 mg capsule 1 cap PO DAILY aspirin 81 mg tablet,delayed release (DR/EC) 81 mg PO DAILY Referrals / Follow Up: Karla Ozuna MD [Primary Care Provider] -
[2022-05-20] MEDS: Oxytocin 15 Units/NS 250ml 15 UNITS/250 ML IV.SOLN 334 UNITS IV (07:53)
[2022-05-20] MEDS: 0.9% Saline Lock 10 ML Syringe IV (10:10)
[2022-05-20] MEDS: Naproxen 500 MG Tablet PO (16:28)
[2022-05-21 04:35] VITALS: BP 106/65; PULSE 76; RESP 15; TEMP 36.7; O2SAT 97
[2022-05-21] MEDS: Naproxen 500 MG Tablet PO (04:45)
--- NOTE | 2022-05-21 07:50 | PCM.PN.OB ---
Subjective Subjective Patient doing well without complaints. Tolerating PO. Ambulating and voiding without difficulty. Feeding well. Denies chest pain, shortness of breath, calf pain/swelling, fevers, chills, lightheadedness. Objective Data Objective Data Vital Signs: Vital Signs Temp Pulse Resp BP Pulse Ox O2 Del Method 98.1 F 76 15 106/65 97 Room Air 05/21/22 04:35 05/21/22 04:35 05/21/22 04:35 05/21/22 04:35 05/21/22 04:35 05/21/22 04:35 Oxygen Delivery Method Room Air Weight: 170 lb Body Mass Index (BMI) 30.1 Intake & Output: Intake and Output for Last 24 Hours 05/19/22 05/20/22 05/21/22 23:59 23:59 23:59 Intake Total 1940.00 / 1940.00 Output Total 2350 / 2350 Balance -410.00 / -410.00 Lab / Micro Data Attestation: I reviewed the patient's lab results. Result Diagrams: 05/20/22 02:00 Labs: Laboratory Results - last 24 hr 05/20/22 02:00: Differential Comment [employer], Smudge Cells Not Reportable, Toxic Vacuolation Not Reportable, Platelet Estimate Not Reportable, RBC Morphology Not Reportable ROS Constitutional Constitutional: Reports systems reviewed and no addt'l complaints, except as documented Cardiovascular Cardiovascular: Reports systems reviewed and no addt'l complaints, except as documented Respiratory/Chest Respiratory/Chest: Reports systems reviewed and no addt'l complaints, except as documented Gastrointestinal Gastrointestinal: Reports systems reviewed and no addt'l complaints, except as documented and other Genitourinary Genitourinary: Reports systems reviewed and no addt'l complaints, except as documented; Denies flank pain, urinary frequency, urinary hesitancy or urinary incontinence Musculoskeletal Musculoskeletal: Reports systems reviewed and no addt'l complaints, except as documented Integumentary Integumentary: Reports systems reviewed and no addt'l complaints, except as documented Neurologic Neurologic: Reports systems reviewed and no addt'l complaints, except as documented Psychiatric Psychiatric: Reports systems reviewed and no addt'l complaints, except as documented Endocrine Endocrinology: Reports systems reviewed and no addt'l complaints, except as documented Physical Exam Const alert, oriented x3 and no apparent distress General Appearance: cooperative and comfortable Neck full ROM Chest inspection of chest normal Resp normal respiratory effort and no retractions GI normal to inspection, nondistended, normoactive bowel sounds Uterus Palpation: uterus fundus firm (U1) Skin no rashes or lesions noted Neuro moves all extremities Assessment & Plan (1) Vaginal delivery: COMMENT: sm IAL 39 boy
[2022-05-21 08:02] VITALS: BP 110/74; PULSE 83; RESP 16; TEMP 36.4; O2SAT 98
[2022-05-21 13:26] VITALS: BP 108/70; PULSE 82; RESP 16; TEMP 36.9; O2SAT 97
== END 2022-05-21 14:10 | disposition home or self-care (01) | DRG 807 ==
LOC: WPOUT 02:17 → WP 02:18
PROVIDERS: Admitting Provider Obstetrics & Gynecology; PCP Family Medicine; Referring Provider Obstetrics & Gynecology; Visit Provider Obstetrics & Gynecology
DX: O69.81X0 Labor and delivery complicated by cord around neck, without compression, not applicable or unspecified (principal); Z37.0 Single live birth; Z3A.39 39 weeks gestation of pregnancy; Z79.82 Long term (current) use of aspirin; Z86.16 Personal history of COVID-19; Z87.59 Personal history of other complications of pregnancy, childbirth and the puerperium
CPT/HCPCS: 59025; 59050; 85025; 86780; 86850; 86900; 86901; 99221; J7120; A4216; G0378

== ENCOUNTER → 2022-07-05 | Outpatient (CLI) | payer BC, SELFPAY ==
[2022-07-12 20:22] LABS: HPV Reflexed? NOT INDICATED
== END | disposition home or self-care (01) ==
LOC: LABSPEC 16:42
PROVIDERS: PCP Family Medicine; Referring Provider Obstetrics & Gynecology; Visit Provider Obstetrics & Gynecology
DX: Z12.4 Encounter for screening for malignant neoplasm of cervix (principal)
CPT/HCPCS: 88175; G0145

== ENCOUNTER 2023-10-13 10:17 | Emergency (ER) | payer BC, SELFPAY ==
[2023-10-13 10:17] VITALS: BP 126/84; PULSE 95; RESP 19; TEMP 35.7; O2SAT 100; BMI 25.0
--- NOTE | 2023-10-13 11:47 | CT_ITS ---
STUDY: CT ABDOMEN AND PELVIS WITHOUT CONTRAST REASON FOR EXAM: Female, 33 years old. Pain L flank/back RLQ RADIATION DOSAGE (If Supplied By Facility): CTDIvol = ( 6.23 ) mGy, DLP = ( 276.84 ) mGycm TECHNIQUE: Transaxial images were obtained from the dome of the diaphragm to the symphysis pubis without oral contrast, and without intravenous contrast. Sagittal and coronal images were reconstructed. Individualized dose optimization techniques were used for this CT. COMPARISON: None. FINDINGS: The visualized lung bases are unremarkable. The visualized portions of the heart are within normal limits. Normal liver. Normal gallbladder and extrahepatic biliary system. Normal spleen. Normal pancreas. Normal bilateral adrenal glands. Normal right kidney. Normal left kidney. Normal visualized stomach. Normal small intestine. Normal colon. The appendix is visualized and appears normal. Normal abdominal aorta. Normal inferior vena cava. Normal retroperitoneum. Normal urinary bladder. IUD is seen within the uterus. Small follicles are seen in both ovaries. There is a small umbilical hernia containing fat. Normal osseous structures. Minimal degree of levoscoliosis. CT/Abdomen/Pelvis without Cont IMPRESSION: Small follicles are seen in both ovaries. IUD is seen within the uterus. No acute abnormality is seen. Electronically Signed: Efrain Ogden MD at 13:20 EDT ,
--- NOTE | 2023-10-13 11:57 | ED.VIS.GI ---
HPI HPI - GI History of Present Illness Chief Complaint: Abd Pain Informant: patient Narrative Narrative: Patient with left low back pain that started 3 or 4 days ago, then she started having some abdominal discomfort that she states mostly is on the right side. Pain has been colicky. No urinary symptoms. Some nausea but no vomiting associated with the pain. No fevers or chills. Never had this before. No history of abdominal surgery. PFSH PFSH Medical History Contraceptive management Vaginal delivery Placenta previa Lab test positive for detection of COVID-19 virus Home Medications ?Medication ?Instructions ?Recorded ?Last Taken ?Type dicyclomine 10 mg capsule 20 mg (2 x 10 mg) PO Q6H PRN PRN 10/13/23 Unknown Rx abdominal discomfort #20 CAPSULES ondansetron 8 mg disintegrating 8 mg PO Q8H PRN nausea and 10/13/23 Unknown Rx tablet vomiting #12 tabs Allergy/AdvReac Type Severity Reaction Status Date / Time No Known Allergies Allergy Verified 08/14/22 13:51 Family History Grandfather CVA (cerebral vascular accident) Mother Breast cancer Father Colon cancer Sister Diabetes Surgical History 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 S/P shoulder surgery Social History adopted: No household members: spouse and children housing: house number of children: 1 current occupational status: employed current occupation: [employer] current occupational exposures/hazards: No pets and animals: Yes pets and animals: dog(s) history of recent travel: No sexually active: Yes Smoking Status: Never smoker alcohol intake: former details: social occasional prior to substance use type: does not use well-balanced diet: daily or most days caffeine: No eating out: 1-3 times/week during the past year weight has: remained stable what type of physical activity do you participate in: none and other details: cross fit ronny/yazdanism: Buddhism seatbelt use: always do you feel safe at home: Yes additional social history: Jassi Blankenship ROS ROS ED Constitutional Constitutional ED: Denies chills or fever(s) Eyes Eyes: Denies change in vision or diplopia ENT ENT ED: Denies rhinorrhea or sore throat Cardiovascular Cardiovascular: Denies chest pain or palpitations Respiratory/Chest Respiratory/Chest: Denies cough or dyspnea Gastrointestinal Gastrointestinal: Reports abdominal pain and nausea; Denies diarrhea or vomiting Genitourinary Genitourinary ED: Denies dysuria or hematuria Musculoskeletal Musculoskeletal: Reports back pain; Denies neck pain Integumentary Denies abscess or rash Neurologic Neurologic: Denies headache(s), paresthesias or weakness Psychiatric Psychiatric: Denies anxiety or suicidal thoughts EXAM Physical Exam Const Vital Signs: 10/13/23 10:17 10/13/23 12:17 10/13/23 14:00 Temperature 96.2 F L Temperature Source Temporal Pulse Rate 95 83 84 Respiratory Rate 19 H 16 16 Blood Pressure 126/84 H 120/76 109/53 L Blood Pressure Mean 98 90 71 Pulse Ox 100 98 98 Oxygen Delivery Method Room Air Room Air Room Air 10/13/23 16:00 10/13/23 16:04 Temperature 97.1 F L Temperature Source Pulse Rate 74 74 Respiratory Rate 16 16 Blood Pressure 103/71 103/71 Blood Pressure Mean 81 81 Pulse Ox 98 98 Oxygen Delivery Method Room Air Positive well nourished and well developed General Appearance ED: well developed and NAD HEENT Reports moist mucous membranes normocephalic and atraumatic Eyes PERRL and EOMs intact bilaterally Neck full ROM and supple Resp normal respiratory effort and clear to auscultation bilaterally Cardio regular rate, regular rhythm and no murmurs GI non-distended GI Narrative: Very mild distal right lower quadrant tenderness, nontender McBurney's point. No guarding or rebound. No other abdominal tenderness. Auscultation: normoactive bowel sounds Palpation: soft Back/Spine General Back: CVA tenderness left (Mild. Normal inspection no rash.) and other FROM Extremity normal to inspection General Extremety ED: Negative for edema, pulses abnormal or tenderness General Extremity: Negative for edema or pulses abnormal Neuro oriented x3, CN's II-XII intact bilaterally and no sensory deficits noted Sensorium / Orientation: awake and alert Motor Exam: strength 5/5 throughout Psych mental status grossly normal and thought process normal Skin no rashes or lesions noted and no wounds MDM MDM MDM Narrative Medical decision making narrative: Symptoms and exam are most compatible with renal colic from a kidney stone/obstructive uropathy. Less likely to be appendicitis based on where she is hurting in the right lower quadrant and tender, less likely to be pyelonephritis and she has no urinary symptoms. Much less likely to be retroperitoneal hemorrhage due to her age, health, lack of taking anticoagulants or having an injury. However given all this I think a CT is reasonable to rule out appendicitis and to rule in kidney stone or if she does not have a kidney stone to evaluate for other issues. She has never had this before. She is midway through her cycle, she has an IUD, and padmini is also in the differential diagnosis for the right lower quadrant pain. Will obtain a urine to rule out ectopic . In the meantime she will get Toradol and Zofran for her discomfort and we will reevaluate. She did feel better. Her labs are all normal is negative ruling out ectopic, urinalysis came back negative ruling out infection. CT of the abdomen/pelvis, I reviewed the images and the result which I agree with, it is essentially negative for any acute. She has follicles on both ovaries. Again may be mittelschmerz or something similar. The other pain may be colonic and retroperitoneal but without any CT findings, I do not suspect there is anything dangerous here. For now she can take Bentyl as needed for pain, she was given some Zofran for nausea as well, and advised to follow-up with her doctor if it does not get better. Minimally tender so I do not think ovarian torsion is likely here, plus there is no ovarian enlargement seen on imaging. She is comfortable with that plan. Lab Data Attestation: I reviewed the patient's lab results. Labs: Laboratory Results - last 24 hr 10/13/23 10/13/23 12:10 14:53 WBC 6.5 RBC 4.66 Hgb 13.3 Hct 40.3 MCV 86.5 MCH 28.5 MCHC 33.0 RDW Std Deviation 40.6 RDW Coeff of Archie 12.9 Plt Count 298 MPV 9.4 Immature Gran % (Auto) 0.300 Neut % (Auto) 61.8 Lymph % (Auto) 29.3 Lawrence % (Auto) 6.0 Eos % (Auto) 2.1 Baso % (Auto) 0.5 Absolute Neuts (auto) 4.0 Absolute Lymphs (auto) 1.91 Nucleated RBC % 0 Sodium 139 Potassium 4.0 Chloride 108 H Carbon Dioxide 29.0 Anion Gap 2 L BUN 9 Creatinine 0.63 Estim Creat Clear Calc 116.69 Est GFR (MDRD) Af Amer 143 Est GFR (MDRD) Non-Af 118 BUN/Creatinine Ratio 14.4 Glucose 89 Calcium 8.7 Serum , Qual NEGATIVE Urine Color Yellow Urine Clarity Clear Urine pH 7.0 Ur Specific [place] 1.010 Urine Protein 15 H Urine Glucose (UA) Normal Urine Ketones 50 H Urine Occult Blood Negative Urine Nitrite Negative Urine Bilirubin Negative Urine Urobilinogen 1 H Ur Leukocyte Esterase Negative Urine RBC 0-5 SEEN Urine WBC 0-5 SEEN Ur Squamous Epith Cells 0-5 SEEN Urine Bacteria 0 SEEN Urine Mucus 0 SEEN Radiography Diagnostic Testing: Clinical Impression(s) from Imaging Studies Abdomen/Pelvis CT 10/13/23 11:47 IMPRESSION: Small follicles are seen in both ovaries. IUD is seen within the uterus. No acute abnormality is seen. Electronically Signed: Efrain Ogden MD at 13:20 EDT , Discharge Plan Triage Chief Complaint: Abd Pain Other Complaint: Back ED Provider: Morteza Lockhart Dx/Rx/DC Orders Clinical Impression: Acute left flank pain, Acute right lower quadrant pain Instructions: ED Flank Pain, Uncertain Cause, ED Mid-Cycle Pain (Padmini) Prescriptions: New dicyclomine 10 mg capsule 20 mg PO Q6H PRN PRN (Reason: abdominal discomfort) Qty: 20 0RF ondansetron 8 mg tablet,disintegrating 8 mg PO Q8H PRN (Reason: nausea and vomiting) Qty: 12 0RF Primary Care Provider: Care Physician,No Primary Referrals: Care Physician,No Primary [Primary Care Provider] - Doctor,Your [Non-Staff] - 3-5 Days if not improving Print Language: Ukrainian Disposition Disposition: Home, Self Care Discharge Date/Time: 10/13/23 16:05
[2023-10-13] MEDS: Ondansetron 4 MG/2 ML Vial IV (12:04)
[2023-10-13] MEDS: Ketorolac 30 MG/ML Syringe IV (12:05)
[2023-10-13 12:17] VITALS: BP 120/76; PULSE 83; RESP 16; O2SAT 98
[2023-10-13 12:25] LABS: Absolute Lymphocyte Count 1.91 X10^3/uL (0.83-4.51); Basophil# 0.03 X10^3/uL; Basophil% 0.5 % (0-1); Eosinophil# 0.14 X10^3/uL; Eosinophils% 2.1 % (0-5); Hematocrit 40.3 % (37-47); Hemoglobin 13.3 g/dL (12.0-15.0); Lymphocyte # 1.91 X10^3/ul (0.83-4.51); Lymphocyte % 29.3 % (19-41); Mean Corpuscular Hgb 28.5 pg (27.0-32.0); Mean Corpuscular Volume 86.5 fL (81-99); Mean Platelet Vol. 9.4 fl (6.2-12.0); Monocyte# 0.39 X10^3/uL; NRBC Flagged by Analyzer 0 % (0-5); Neutrophil # 4.03 X10^3/uL (2.7-7.7); Neutrophil % 61.8 % (47-70); Platelet Count 298 K/mm3 (150-450); RBC Distribution Width CV 12.9 % (11.6-14.6); RBC Distribution Width SD 40.6 fl (35.1-43.9); Red Blood Count 4.66 M/mm3 (4.2-5.4); White Blood Count 6.5 K/mm3 (4.4-11.0)
[2023-10-13 12:32] LABS: Internal QC Validated? YES +Cl - CLEAR BKGD; Pregnancy, Serum, hCG Quali. NEGATIVE Negative
[2023-10-13 12:36] LABS: Anion Gap 2 (5-15); BUN 9 mg/dL (7-18); BUN/Creat Ratio 14.4 RATIO (10-20); Calcium,Total 8.7 mg/dL (8.5-10.1); Chloride 108 mmol/L (98-107); Creatinine, Serum 0.63 mg/dL (0.55-1.02); EST Glomerular Filtration Rate 118 mL/min (>60); Est Glom Filt Rate - Afr Amer 143 mL/min (>60); Estimated Creatinine Clearance 116.69 ml/min; Glucose 89 mg/dL (74-106); Sodium Level 139 mmol/L (136-145)
[2023-10-13 14:00] VITALS: BP 109/53; PULSE 84; RESP 16; O2SAT 98
[2023-10-13 14:58] LABS: Bacteria 0 SEEN /hpf (None Seen); Mucous, Urine 0 SEEN /hpf (<or=2+)
[2023-10-13 15:23] LABS: Color, Urine Yellow (Yellow); Glucose, Dipstick Normal (Normal); Ketone-Dipstick 50 mg/dl (Negative); Leukocyte Esterase-Dipstick Negative /ul (Negative); Nitrite-Dipstick Negative (Negative); Occult Blood-Urine Negative /ul (Negative); Protein-Dipstick 15 mg/dl (Negative); Urine Bilirubin Dipstick Negative (Negative); Urine Clarity Clear (Clear); Urine Urobilinogen 1 mg/dl (Normal)
[2023-10-13 15:31] LABS: Red Blood Cells-Urine 0-5 SEEN /hpf (0-5); Squamous Epithelial Cells - UA 0-5 SEEN /hpf (5-10); White Blood Cells 0-5 SEEN /hpf (0-5)
[2023-10-13 16:00] VITALS: BP 103/71; PULSE 74; RESP 16; O2SAT 98
[2023-10-13 16:04] VITALS: BP 103/71; PULSE 74; RESP 16; TEMP 36.2; O2SAT 98
== END 2023-10-13 16:05 | disposition home or self-care (01) ==
PROVIDERS: Emergency Provider Emergency Medicine; Visit Provider Emergency Medicine
DX: R10.31 Right lower quadrant pain (principal); R11.0 Nausea; Z97.5 Presence of (intrauterine) contraceptive device
CPT/HCPCS: 74176; 80048; 81001; 84703; 85025; 96374; 96375; 99284; A4216; J2405

== ENCOUNTER → 2023-10-28 | Outpatient (CLI) | payer BC, SELFPAY ==
[2023-10-28 13:36] LABS: ALB/GLOB Ratio 1.3 RATIO (0.9-2.4); AST(SGOT) 15 U/L (15-37); Alanine Aminotransfer ALT/SGPT 19 U/L (13-56); Albumin, Serum 4.1 g/dL (3.2-5.0); Alkaline Phosphatase 60 U/L (45-117); Anion Gap 6 (5-15); BUN 16 mg/dL (7-18); BUN/Creat Ratio 21.2 RATIO (10-20); Calcium,Total 9.2 mg/dL (8.5-10.1); Chloride 108 mmol/L (98-107); Cholesterol 162 mg/dL (200); Creatinine, Serum 0.75 mg/dL (0.55-1.02); EST Glomerular Filtration Rate 95 mL/min (>60); Est Glom Filt Rate - Afr Amer 115 mL/min (>60); Globulin 3.2 g/dL (2.2-4.2); Glucose 85 mg/dL (74-106); High Density Lipoprotein 61 mg/dL; Potassium 4.1 mmol/L (3.5-5.1); Protein, Total 7.3 g/dL (6.4-8.2); Sodium Level 140 mmol/L (136-145); Triglycerides 50 mg/dL; Very Low Density Lipoprotein 10 mg/dL (5-40)
== END | disposition home or self-care (01) ==
LOC: BIMLAB 09:11
PROVIDERS: PCP Internal Medicine; Referring Provider Nurse Practitioner; Visit Provider Nurse Practitioner
DX: Z00.00 Encounter for general adult medical examination without abnormal findings (principal)
CPT/HCPCS: 36415; 80053; 80061

== ENCOUNTER → 2024-10-28 | Outpatient (CLI) | payer BC, SELFPAY ==
[2024-10-30 14:08] LABS: Chlamydia By Nucleic Acid AMP Negative (Negative); Gonococcus By Nucleic Acid AMP Negative (Negative)
== END | disposition home or self-care (01) ==
LOC: LABSPEC 11:51
PROVIDERS: PCP Internal Medicine; Referring Provider Advanced Practice Midwife; Visit Provider Advanced Practice Midwife
DX: O09.90 Supervision of high risk pregnancy, unspecified, unspecified trimester (principal); Z3A.00 Weeks of gestation of pregnancy not specified
CPT/HCPCS: 87086; 87491; 87591

== ENCOUNTER → 2024-11-05 | Outpatient (CLI) | payer BC, SELFPAY ==
[2024-11-05 12:55] LABS: Hematocrit 38.3 % (37-47); Hemoglobin 13.1 g/dL (12.0-15.0); Immature Granulocytes Count 0.030 X10^3/uL (0.0-0.0); Mean Corp Hgb Conc 34.2 g/dL (32-36); Mean Corpuscular Volume 85.3 fL (81-99); Mean Platelet Vol. 9.4 fl (6.2-12.0); NRBC Flagged by Analyzer 0 % (0-5); Platelet Count 299 K/mm3 (150-450); RBC Distribution Width CV 13.0 % (11.6-14.6); RBC Distribution Width SD 40.4 fl (35.1-43.9); Red Blood Count 4.49 M/mm3 (4.2-5.4); White Blood Count 7.7 K/mm3 (4.4-11.0)
[2024-11-05 13:40] LABS: HIV Nonreactive (Nonreactive); Hepatitis B Surface Antigen Nonreactive (Nonreactive); Hepatitis C Antibody Nonreactive (Nonreactive); Syphilis Antibodies Nonreactive (Nonreactive)
== END | disposition home or self-care (01) ==
PROVIDERS: PCP Internal Medicine; Referring Provider Advanced Practice Midwife; Visit Provider Advanced Practice Midwife
DX: O09.90 Supervision of high risk pregnancy, unspecified, unspecified trimester (principal); Z3A.00 Weeks of gestation of pregnancy not specified
CPT/HCPCS: 36415; 85025; 86703; 86762; 86780; 86803; 86850; 86900; 86901; 87340